=== PATIENT | female | born 2000 | race American Indian/Alaskan Native ===

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

== ENCOUNTER 2020-12-12 06:52 | Observation (INO) | payer SELFPAY ==
[2020-12-12] MEDS ORDERED: NALOXONE 0.4 MG/1 ML INJ IV PRN (11:11)
[2020-12-12] MEDS ORDERED: ONDANSETRON 4 MG/2 ML INJ IV ONE (11:11)
--- NOTE | 2020-12-12 11:19 | Emergency Department Report ---
ED General Adult HPI - General Chief complaint: Altered Mental Status Stated complaint: AMS/DRUG USE Time Seen by Provider: 12/12/20 11:01 Source: family, EMS ( EMS documentation not available at time of chart dictation ), RN notes reviewed, old records reviewed Mode of arrival: Stretcher Limitations: Altered Mental Status - History of Present Illness Initial comments: The patient was evaluated in the emergency department for symptoms described in the history of present illness. He/she was evaluated in the context of the global COVID-19 pandemic, which necessitated consideration that the patient might be at risk for infection with the virus that causes COVID-19. Institutional protocols and algorithms that pertain to the evaluation of patients at risk for COVID-19 are in a state of rapid change based on information released by regulatory bodies including the CDC and federal and state organizations. These policies and algorithms were followed during the patient's care in the emergency department. Please note that these policies, procedures and recommendations changed on a rapid basis. This patient is a 20-year-old female. She is not known to myself previously. She is brought to the hospital by emergency medical services with a complaint of possible overdose. The patient is altered. She is not able to provide any history. Called up patient's significant other, Mr. Alba; [phone]. He provides all of the history of present illness. He states that the patient overdosed on unknown muscle relaxants at 12 or 1 in the morning. He does not know the name of the medication that the patient took. He does not believe that there are any bottles. He denies antecedent trauma. He states he did not witness the overdose. He states the patient informed him that he took the medicine. He also states that the patient indicated she wanted to be left alone. He called 911 this morning because the patient started to have nausea and vomiting. He denies trauma. He also denies fever. He states that she is not . Currently, the patient is not accompanied by friends or family. She is altered, and cannot describe the exacerbating, relieving, aggravating or radiation factors associated with her symptomatology. -: unknown Severity scale (0 -10): 0 - Related Data Home Medications Medication Instructions Recorded Confirmed Last Taken Vitamin 1 tab PO DAILY 05/22/19 05/22/19 05/20/19 20:00 1 Allergies Allergy/AdvReac Type Severity Reaction Status Date / Time amoxicillin Allergy Severe Hives Verified 05/17/19 14:18 ED Review of Systems ROS: Stated complaint: AMS/DRUG USE Other details as noted in HPI Comment: Unobtainable due to pts medical conditions ED Past Medical Hx - Past Medical History Previous Medical History?: Yes Hx Hypertension: No Hx Congestive Heart Failure: No Hx Diabetes: No Hx Deep Vein Thrombosis: No Hx Renal Disease: No Hx Sickle Cell Disease: No Hx Seizures: Yes (02/19/2019) Hx Asthma: No Hx COPD: No Hx HIV: No - Social History Smoking Status: Unknown if ever smoked - Medications Home Medications: Home Medications Medication Instructions Recorded Confirmed Last Taken Type Vitamin 1 tab PO DAILY 05/22/19 05/22/19 05/20/19 20:00 History 1 ED Physical Exam - General Limitations: Altered Mental Status General appearance: lethargic - Head Head exam: Present: atraumatic, normocephalic - Eye Eye exam: Present: normal appearance, other (Pupils are markedly dilated) - ENT ENT exam: Present: normal exam, normal orophraynx, mucous membranes moist, normal external ear exam - Neck Neck exam: Present: normal inspection. Absent: tenderness, meningismus - Respiratory Respiratory exam: Present: decreased breath sounds. Absent: respiratory distress, wheezes, rales, rhonchi, stridor - Cardiovascular Cardiovascular Exam: Present: normal rhythm, bradycardia, normal heart sounds. Absent: tachycardia, irregular rhythm, systolic murmur, diastolic murmur, rubs, gallop - GI/Abdominal GI/Abdominal exam: Present: soft. Absent: distended, tenderness, guarding, rebound, rigid, pulsatile mass - Extremities Exam Extremities exam: Present: normal inspection, other (2+ pulses noted in the bilateral upper and lower extremities. There is no palpable cord. negative Homans sign. Muscular compartments are soft. The pelvis is stable.). Absent: pedal edema, calf tenderness - Back Exam Back exam: Present: normal inspection. Absent: tenderness, CVA tenderness (R), CVA tenderness (L), paraspinal tenderness, vertebral tenderness - Neurological Exam Neurological exam: Present: altered, other (The patient is sleepy. She moves 4 extremities in response to painful stimuli. She occasionally moans.) - Skin Skin exam: Present: warm, dry, intact, normal color. Absent: rash ED Course Vital Signs 12/12/20 12/12/20 07:00 12:20 Temperature 95.4 F L 97.6 F Pulse Rate 57 L 62 Respiratory 14 13 Rate Blood Pressure 128/70 118/59 [Left] O2 Sat by Pulse 100 100 Oximetry - Reevaluation(s) Reevaluation #1: 12/12/20 11:22 Differential diagnosis, including but not limited to: Toxic encephalopathy, metabolic encephalopathy, overdose, environmental hypothermia, electrolyte derangement, thyroid derangement Assessment and plan: 20-year-old female, with reported history of overdose, and nausea and vomiting. It is not known at what time the patient overdosed. Given nausea and vomiting, not a candidate for charcoal. Patient placed on 1013. Nausea medication ordered, as needed Narcan ordered. CT scan of the brain, x- ray of the chest, EKG, and appropriate laboratory studies ordered. Psychiatric consultation requested. Active patient rewarming ordered. We anticipate that this patient will require admission to the hospital for supportive care once her initial diagnostics have resulted. It is unlikely that she will be cleared for psychiatric placement from the emergency room. Reevaluation #2: 12/12/20 11:35 EMS documentation is now reviewed and appreciated. 12/12/20 12:[address] scan of the brain negative for acute findings. Laboratory studies unremarkable. Patient still sleepy. Patient breathing spontaneously protecting her airway. Hypothermia has corrected. Aspirin level and TSH pending. Urinalysis pending. Patient will be admitted to the medical service under the care of Dr. Jesus Manuel Kim Medical decision makin-year-old female with acute toxic metabolic encephalopathy likely secondary to overdose, who is still altered, requires supportive care, cannot be medically cleared for psychiatric hospitalization at this time. ED Medical Decision Making - Lab Data Result diagrams: 12/12/20 11:35 12/12/20 11:35 Vital Signs 12/12/20 07:00 Temperature 95.4 F L Pulse Rate 57 L Respiratory 14 Rate Blood Pressure 128/70 [Left] O2 Sat by Pulse 100 Oximetry - EKG Data -: EKG Interpreted by Ne EKG shows normal: sinus rhythm Rate: bradycardia - EKG Data When compared to previous EKG there are: previous EKG unavailable 12/12/20 11:35 EKG is interpreted at 11: 32 Sinus rhythm, rate 55 bpm, bradycardia, normal axis, normal P wave axis, high left ventricular voltage, QTC 391 ms. QT is 410 ms. Minimal motion artifact. Abnormal EKG. Not a STEMI. - Radiology Data Radiology results: pending, report reviewed, image reviewed Noncontrast CT scan of the brain is negative for acute findings. Critical Care Time: Yes Critical care time in (mins) excluding proc time.: 35 Critical care attestation.: If time is entered above; I have spent that time in minutes in the direct care of this critically ill patient, excluding procedure time. ED Disposition Clinical Impression: Overdose, Hypothermia, Acute encephalopathy Disposition: ADMITTED INPATIENT Is pt being admited?: Yes Does the pt Need Aspirin: No Condition: Serious Referrals: PRIMARY CARE, [Primary Care Provider] - 3-5 Days
--- NOTE | 2020-12-12 12:11 | Cat Scan Report ---
CT HEAD WITHOUT CONTRAST INDICATION / CLINICAL INFORMATION: Medical Clearance Psych. TECHNIQUE: All CT scans at this location are performed using CT dose reduction for ALARA by means of automated e xposure control. COMPARISON: None available. FINDINGS: HEMORRHAGE: No evidence of intracranial hemorrhage or extra-axial fluid collection. EXTRA-AXIAL SPACES: Cortical sulci, sylvian fissures and basilar cisterns have an unremarkable appear ance. VENTRICULAR SYSTEM: The third and lateral ventricles are of normal size and configuration. CEREBRAL PARENCHYMA: No areas of abnormal brain parenchymal attenuation are identified. There is no i ndication of recent infarction. MIDLINE SHIFT OR HERNIATION: There is no mass effect. CEREBELLUM / BRAINSTEM: Brainstem and cerebellum have an unremarkable appearance. MIDLINE STRUCTURES:No abnormalities of the pituitary gland or pineal region are identified. INTRACRANIAL VESSELS:No abnormalities are identified on this noncontrast head CT. ORBITS: visualized portions of the orbits have an unremarkable appearance. SOFT TISSUES of HEAD: No significant abnormality. CALVARIUM: Evaluation of bone windows reveals no abnormalities. PARANASAL SINUSES / MASTOID AIR CELLS: Visualized portions of the paranasal sinuses are free from inf lammatory mucosal disease. Frontal sinuses did not develop in this individual. Mastoid air cells are normally pneumatized. IMPRESSION: 1. Normal head CT without contrast. Signer Name: Yfn Escudero MD Signed: 12/12/2020 12:06 PM Workstation Name: [id number]
[2020-12-12 12:29] LABS: Basophils % (Auto) 0.6 % (0.0-1.8); Eosinophils % (Auto) 0.1 % (0.0-4.3); Hematocrit 42.4 % (30.3-42.9); Hemoglobin 13.9 gm/dl (10.1-14.3); Lymphocytes # (Auto) 1.2 K/mm3 (1.2-5.4); Lymphocytes % (Auto) 24.9 % (13.4-35.0); Mean Corpuscular HGB Conc 33 % (30-34); Mean Corpuscular Volume 89 fl (79-97); Monocytes # (Auto) 0.3 K/mm3 (0.0-0.8); Platelet Count 245 K/mm3 (140-440); Red Blood Count 4.75 M/mm3 (3.65-5.03); Red Cell Distribution Width 13.7 % (13.2-15.2)
[2020-12-12 12:40] LABS: Alanine Aminotransferase 18 units/L (7-56); Albumin 4.4 g/dL (3.9-5); Blood Urea Nitrogen 7 mg/dL (7-17); Calcium 9.8 mg/dL (8.4-10.2); Hemolysis Index 14
[2020-12-12 12:42] LABS: BUN/Creatinine Ratio 23
[2020-12-12] MEDS ORDERED: LACTATED RINGERS 1,000 ML IV ONE (12:55)
--- NOTE | 2020-12-12 13:36 | XRay Report ---
CHEST 1 VIEW 12/12/2020 12:25 PM INDICATION / CLINICAL INFORMATION: Medical Clearance Psych. COMPARISON: None available. FINDINGS: SUPPORT DEVICES: None. HEART / MEDIASTINUM: No significant abnormality. LUNGS / PLEURA: No significant pulmonary or pleural abnormality. No pneumothorax. ADDITIONAL FINDINGS: No significant additional findings. IMPRESSION: 1. No acute findings. Signer Name: Liliane Carrillo MD Signed: 12/12/2020 1:32 PM Workstation Name: [id number]
[2020-12-12 13:59] LABS: Bacteria,Urine 1+ /HPF (Negative); Bilirubin,Urine NEG (Negative); Blood,Urine NEG (Negative); Color,Urine Yellow (Yellow); Mucus,Urine FEW /HPF; Protein,Urine <15 mg/dL mg/dL (Negative); RBC,Urine < 1.0 /HPF (0.0-6.0); Urobilinogen,Urine < 2.0 mg/dL (<2.0); WBC,Urine < 1.0 /HPF (0.0-6.0)
[2020-12-12 14:03] LABS: Amphetamine Screen,Urine Negative; Benzodiazepines Screen,Urine Negative; Cocaine Screen,Urine Negative; Methadone Screen,Urine Negative; Opiate Screen,Urine Negative
[2020-12-12 14:23] LABS: Cannabinoid Screen,Urine Positive
[2020-12-12] MEDS ORDERED: NITROFURANTOIN MONOHYD/M-CRYST 100 MG CAP PO ONE ×2 (15:21→18:00)
--- NOTE | 2020-12-13 00:03 | History and Physical Report ---
History of Present Illness Date of examination: 12/12/20 Date of admission: 12/12/20 16:29 Chief complaint: Took 4 tablets of muscle relaxants from a friend for relief of muscle spasms-no homicidal or suicidal intent History of present illness: 20-year-old -Guyanese female with history of seizures took 4 tablets of muscle relaxants for relief of muscle spasms. The muscles relaxants were given by a friend and she does not name know the name of the muscle relaxant. Was brought to the hospital by emergency medical services with a complaint of possible overdose. In the emergency room patient was slightly lethargic. During my exam patient was alert and oriented and trying to drink fluids. Her only complaint was that whenever she drinks something she is not able to tolerate it and throwing up. Otherwise patient wants to go home. Patient was having nausea and vomiting since she took the pills and lethargic. First few hours. Alert and oriented during my exam. Which is couple hours later around 16 hrs. Because of persistent vomiting patient is being admitted. - Past Medical History Previous Medical History?: Ye Hx Seizures: Yes (02/19/2019) Surgical history None - Social History Smoking Status: Unknown if ever smoked Family history Htn Review of Systems ROS: Constitutional no weight loss or weight gain no fever or chills HEENT no sore throat no post nasal drip no diplopia Neck no neck stiffness no lymph gland enlargement Chest and lungs no shortness of breath cough or wheezing CVS no chest pain no diaphoresis no palpitations GI nausea and vomiting present Genitourinary system no dysuria no flank pain Musculoskeletal system no muscle pains no joint pains 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 no seizures Skin no rash no itching Psychiatric no depression no homicidal or suicidal tendencies Hematologic no lymphedema or bruising Endocrine no polydipsia no polyuria no cold intolerance no heat intolerance Medications and Allergies Allergies Allergy/AdvReac Type Severity Reaction Status Date / Time amoxicillin Allergy Severe Hives Verified 05/17/19 14:18 Home Medications Medication Instructions Recorded Confirmed Last Taken Type No Known Home Medications [No 12/13/20 12/13/20 Unknown History Reported Home Medications] Active Meds: Active Medications Naloxone HCl (Naloxone 0.4 Mg/1 Ml Inj) 0.1 mg IV Q2MIN PRN PRN Reason: Res Rate </= 8 or 02 SAT < 92% Exam - Constitutional Vitals: Temp Pulse Resp BP Pulse Ox 97.6 F 56 L 14 119/75 99 12/12/20 12:20 12/12/20 18:01 12/12/20 18:01 12/12/20 18:01 12/12/20 18:01 General appearance: Present: no acute distress, well-nourished - EENT Eyes: Present: PERRL ENT: hearing intact, clear oral mucosa - Neck Neck: Present: supple, normal ROM - Respiratory Respiratory effort: normal Respiratory: bilateral: CTA - Cardiovascular Heart rate: 88 Rhythm: regular Heart Sounds: Present: S1 & S2. Absent: rub, click - Extremities Extremities: pulses symmetrical, No edema Peripheral Pulses: within normal limits - Abdominal General gastrointestinal: Present: soft, non-tender, non-distended, normal bowel sounds Female genitourinary: Present: normal - Integumentary Integumentary: Present: clear, warm, dry - Musculoskeletal Musculoskeletal: gait normal, strength equal bilaterally - Psychiatric Psychiatric: appropriate mood/affect, intact judgment & insight - Neurologic Neurologic: CNII-XII intact, moves all extremities - Allied Health Allied health notes reviewed: nursing, case management Results - Labs CBC & Chem 7: 12/12/20 11:35 12/12/20 11:35 Labs: Laboratory Last Values WBC 4.7 K/mm3 (4.5-11.0) 12/12/20 11:35 RBC 4.75 M/mm3 (3.65-5.03) 12/12/20 11:35 Hgb 13.9 gm/dl (10.1-14.3) 12/12/20 11:35 Hct 42.4 % (30.3-42.9) 12/12/20 11:35 MCV 89 fl (79-97) 12/12/20 11:35 MCH 29 pg (28-32) 12/12/20 11:35 MCHC 33 % (30-34) 12/12/20 11:35 RDW 13.7 % (13.2-15.2) 12/12/20 11:35 Plt Count 245 K/mm3 (140-440) 12/12/20 11:35 Lymph % (Auto) 24.9 % (13.4-35.0) 12/12/20 11:35 [place]upe % (Auto) 6.0 % (0.0-7.3) 12/12/20 11:35 Eos % (Auto) 0.1 % (0.0-4.3) 12/12/20 11:35 Baso % (Auto) 0.6 % (0.0-1.8) 12/12/20 11:35 Lymph # (Auto) 1.2 K/mm3 (1.2-5.4) 12/12/20 11:35 [place]upe # (Auto) 0.3 K/mm3 (0.0-0.8) 12/12/20 11:35 Eos # (Auto) 0.0 K/mm3 (0.0-0.4) 12/12/20 11:35 Baso # (Auto) 0.0 K/mm3 (0.0-0.1) 12/12/20 11:35 Seg Neutrophils % 68.4 % (40.0-70.0) 12/12/20 11:35 Seg Neutrophils # 3.2 K/mm3 (1.8-7.7) 12/12/20 11:35 Sodium 141 mmol/L (137-145) 12/12/20 11:35 Potassium 4.3 mmol/L (3.6-5.0) 12/12/20 11:35 Chloride 105.8 mmol/L (98-107) 12/12/20 11:35 Carbon Dioxide 26 mmol/L (22-30) 12/12/20 11:35 Anion Gap 14 mmol/L 12/12/20 11:35 BUN 7 mg/dL (7-17) 12/12/20 11:35 Creatinine 0.3 mg/dL (0.6-1.2) L 12/12/20 11:35 Estimated GFR > 60 ml/min 12/12/20 11:35 BUN/Creatinine Ratio 23 % 12/12/20 11:35 Glucose 107 mg/dL (65-100) H 12/12/20 11:35 Calcium 9.8 mg/dL (8.4-10.2) 12/12/20 11:35 Magnesium 2.30 mg/dL (1.7-2.3) 12/12/20 11:35 Total Bilirubin 0.30 mg/dL (0.1-1.2) 12/12/20 11:35 AST 15 units/L (5-40) 12/12/20 11:35 ALT 18 units/L (7-56) 12/12/20 11:35 Alkaline Phosphatase 77 units/L (35-129) 12/12/20 11:35 Total Creatine Kinase 93 units/L (30-135) 12/12/20 11:35 Total Protein 7.9 g/dL (6.3-8.2) 12/12/20 11:35 Albumin 4.4 g/dL (3.9-5) 12/12/20 11:35 Albumin/Globulin Ratio 1.3 % 12/12/20 11:35 TSH 0.845 mlU/mL (0.270-4.200) 12/12/20 11:35 HCG, Qual Negative (Negative) 12/12/20 11:35 Urine Color Yellow (Yellow) 12/12/20 Unknown Urine Turbidity Clear (Clear) 12/12/20 Unknown Urine pH 6.0 (5.0-7.0) 12/12/20 Unknown Ur Specific [place] 1.006 (1.003-1.030) 12/12/20 Unknown Urine Protein <15 mg/dl mg/dL (Negative) 12/12/20 Unknown Urine Glucose (UA) Neg mg/dL (Negative) 12/12/20 Unknown Urine Ketones Tr mg/dL (Negative) 12/12/20 Unknown Urine Blood Neg (Negative) 12/12/20 Unknown Urine Nitrite Pos (Negative) 12/12/20 Unknown Urine Bilirubin Neg (Negative) 12/12/20 Unknown Urine Urobilinogen < 2.0 mg/dL (<2.0) 12/12/20 Unknown Ur Leukocyte Esterase Neg (Negative) 12/12/20 Unknown Urine WBC (Auto) < 1.0 /HPF (0.0-6.0) 12/12/20 Unknown Urine RBC (Auto) < 1.0 /HPF (0.0-6.0) 12/12/20 Unknown U Epithel Cells (Auto) 1.0 /HPF (0-13.0) 12/12/20 Unknown Urine Bacteria (Auto) 1+ /HPF (Negative) 12/12/20 Unknown Urine Mucus Few /HPF 12/12/20 Unknown Salicylates < 0.3 mg/dL (2.8-20.0) L 12/12/20 11:35 Urine Opiates Screen Negative 12/12/20 Unknown Urine Methadone Screen Negative 12/12/20 Unknown Acetaminophen 5.0 ug/mL (10.0-30.0) L 12/12/20 11:35 Ur Barbiturates Screen Negative 12/12/20 Unknown Ur Phencyclidine Scrn Negative 12/12/20 Unknown Ur Amphetamines Screen Negative 12/12/20 Unknown U Benzodiazepines Scrn Negative 12/12/20 Unknown Urine Cocaine Screen Negative 12/12/20 Unknown U Marijuana (THC) Screen Positive 12/12/20 Unknown Drugs of Abuse Note Disclamer 12/12/20 Unknown Plasma/Serum Alcohol < 0.01 % (0-0.07) 12/12/20 11:35 Short CBC 12/12/20 Range/Units 11:35 WBC 4.7 (4.5-11.0) K/mm3 Hgb 13.9 (10.1-14.3) gm/dl Hct 42.4 (30.3-42.9) % Plt Count 245 (140-440) K/mm3 BMP 12/12/20 11:35 Sodium 141 Potassium 4.3 Chloride 105.8 Carbon Dioxide 26 BUN 7 Creatinine 0.3 L Glucose 107 H Calcium 9.8 Cardiac Enzymes 12/12/20 Range/Units 11:35 Total Creatine Kinase 93 (30-135) units/L Liver Function 12/12/20 Range/Units 11:35 Total Bilirubin 0.30 (0.1-1.2) mg/dL AST 15 (5-40) units/L ALT 18 (7-56) units/L Alkaline Phosphatase 77 (35-129) units/L Albumin 4.4 (3.9-5) g/dL Urine 12/12/20 Range/Units Unknown Urine Color Yellow (Yellow) Urine pH 6.0 (5.0-7.0) Ur Specific [place] 1.006 (1.003-1.030) Urine Protein <15 mg/dl (Negative) mg/dL Urine Glucose (UA) Neg (Negative) mg/dL Assessment and Plan Advance Directives: Yes (Full code) VTE prophylaxis?: Chemical Plan of care discussed with patient/family: Yes - Patient Problems (1) Overdose Current Visit: Yes Status: Acute Qualifiers: Encounter type: initial encounter Injury intent: accidental or unintentional Qualified Code(s): T50.901A - Poisoning by unspecified drugs, medicaments and biological substances, accidental (unintentional), initial encounter Plan to address problem: Patient is not homicidal or suicidal. Patient took 4 muscle relaxants the names of which she does not know for relief of muscle spasms As nausea and vomiting after taking the muscle relaxants Was a bit lethargic but became to normal level of consciousness after couple of hours in the emergency room IV fluids for now IV Protonix for now IV Zofran for now (2) Acute gastritis Current Visit: Yes Status: Acute Plan to address problem: IV Protonix and IV Zofran and IV Reglan for now (3) Marijuana use Current Visit: Yes Status: Chronic Plan to address problem: Patient counseled Marijuana may be causing the vomiting (4) Discharge planning issues Current Visit: Yes Status: Acute Plan to address problem: Patient may be discharged tomorrow if vomiting subsides No mental health consult Patient is not homicidal or suicidal (5) DVT prophylaxis Current Visit: Yes Status: Acute Plan to address problem: On SCDs and GI prophylaxis
[2020-12-13] MEDS ORDERED: IBUPROFEN 600 MG TAB PO PRN (00:05)
[2020-12-13] MEDS ORDERED: HYDROmorphone 1 MG/1 ML INJ IV PRN ×2 (00:05)
[2020-12-13] MEDS ORDERED: ACETAMINOPHEN 325 MG TAB PO PRN (00:05)
[2020-12-13] MEDS ORDERED: ONDANSETRON 4 MG/2 ML INJ IV PRN (00:05)
[2020-12-13] MEDS ORDERED: D5W/0.9% NACL 1,000 ML IV SCH (01:00)
[2020-12-13] MEDS ORDERED: FAMOTIDINE 20 MG/2 ML INJ IV SCH (01:00)
[2020-12-13] MEDS ORDERED: SODIUM CHLORIDE 0.9% 1000 ML 1,000 ML IV SCH (07:15)
[2020-12-13] MEDS: PANTOPRAZOLE 40 MG INJ IV SCH ×2 (08:00→11:31)
[2020-12-13] MEDS ORDERED: HEPARIN 5,000 UNIT/1 ML VIAL SUB-Q SCH (10:00)
--- NOTE | 2020-12-13 10:10 | Consultation ---
History of Present Illness - Reason for Consult Consult date: 12/13/20 Reason for consult: OD - Chief Complaint Chief complaint: Took 4 tablets of muscle relaxants from a friend for relief of muscle spasms-no homicidal or suicidal intent - History of Present Psychiatric Illness Per ER Note: This patient is a 20-year-old female. She is not known to myself previously. She is brought to the hospital by emergency medical services with a complaint of possible overdose. The patient is altered. She is not able to provide any history. Called up patient's significant other, Mr. Alba; [phone]. He provides all of the history of present illness. He states that the patient overdosed on unknown muscle relaxants at 12 or 1 in the morning. He does not know the name of the medication that the patient took. He does not believe that there are any bottles. He denies antecedent trauma. He states he did not witness the overdose. He states the patient informed him that he took the medicine. He also states that the patient indicated she wanted to be left alone. He called 911 this morning because the patient started to have nausea and vomiting. He denies trauma. He also denies fever. He states that she is not . During my evaluation of 20y/o Huseyin Gustafson, she is a pleasant, and polite AA female. She is calm, cooperative, and a.o x 3. She is smiling most of the visit. The patient says she has a lot of back pain and was given medication by her friend. She says "I didn't really ask her what it was. She just told me she had something to help me with the pain." The patient says, "I took two of them, the pain didn't go away so I took two more." She says "my friend feels so bad for giving me that now." When asking the patient did she take the pills in an attempt to harm herself, she says "I promise I was not trying to kill myself. It was only 4 pills. That was not what I was trying to do." She then laughs. The patient says "apparently my boyfriend couldn't wake me up." She says "I think I must have fallen out of the bed too because I have a knot on my head." Huseyin says she has a daughter. 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 The patient did admit that she "cuts sometimes." She says "I know if people see this they automatically think you want to hurt yourself." She says "I did this for the first time in long time, just to relieve stress." She denies ever seeing a psychiatric or being on any psych medications. Although she expressed feeling depressed at times. She laughs and states "depressed now, not suicidal." I discussed with the patient the benefits of therapy and possibly an antidepressant while here. She says "that would work. d/c 1013I definitely will look into that." She denies hallucinations of any kind. She denies any illicit drug use out side of THC. PAST PSYCHIATRIC HISTORY: Diagnoses: Denies Suicide attempts or Self-harm behavior: cutting Prior psychiatric hospitalizations: Denies Substance Abuse history: Denies Previous psychiatric medications tried: Denies Outpatient treatment: Denies PAST MEDICAL HISTORY: None reported or document Family Psychiatric History: None reported or documented SOCIAL HISTORY Marital Status: Single Living Arrangements: with child and child's father Employment Status: Employed Access to guns/weapons: denies Education: high school History of Abuse: denies Legal History: denies REVIEW OF SYSTEMS Constitutional: Negative for weight loss ENT: Negative for stridor Respiratory: Negative for cough or hemoptysis All other systems reviewed and are negative MENTAL STATUS EXAMINATION General Appearance and Behavior: Age appropriate, good hygiene, wearing a ppropriate clothes, calm and cooperative polite with questioning. Cooperation: engaged Psychomotor Behavior: Psychomotor normal Mood: fine Affect and affective range: congruent with stated mood, smiling, euthymic Thought Process: goal directed Thought Content: None Speech: Normal volume, Regular rate and rhythm, Suicidal Ideation: Denies Homicidal Ideation: Denies Hallucinations: Denies Delusions: None elicited Impulse Control: Questionable Insight and Judgment: Limited Memory: Limited Attention: attentive Orientation: a/o x 4 Assessment (1)Accidental Overdose Treatment Plan d/c 1013 Lexapro 5mg po daily #30, no refills Sitter: Per primary Medical: primary Disposition: Do not recommend acute psychiatric inpatient treatment The patient to follow up with outpatient psych in 7 to 14 days upon discharge from hospital The ripening room hand to give the patient resources to establish outpatient psychiatry for med management and CBT Will sign off. Thanks. Case staffed with Dr. Romano Medications and Allergies Allergies Allergy/AdvReac Type Severity Reaction Status Date / Time amoxicillin Allergy Severe Hives Verified 05/17/19 14:18 Home Medications Medication Instructions Recorded Confirmed Last Taken Type Escitalopram Oxalate [Lexapro] 5 mg PO QDAY #30 tablet 12/13/20 Unknown Rx Active Meds: Active Medications Acetaminophen (Acetaminophen 325 Mg Tab) 650 mg PO Q4H PRN PRN Reason: Pain MILD(1-3)/Fever >100.5/BOBO Heparin Sodium (Porcine) (Heparin 5,000 Unit/1 Ml Vial) 5,000 unit SUB-Q Q12HR LOKESH Hydromorphone HCl (Hydromorphone 1 Mg/1 Ml Inj) 0.25 mg IV Q3H PRN PRN Reason: Pain, Moderate (4-6) Hydromorphone HCl (Hydromorphone 1 Mg/1 Ml Inj) 0.5 mg IV Q3H PRN PRN Reason: Pain , Severe (7-10) Dextrose/Sodium Chloride (D5ns) 1,000 mls @ 150 mls/hr IV DIRECT LOKESH Sodium Chloride (Nacl 0.9% 1000 Ml) 1,000 mls @ 150 mls/hr IV DIRECT LOKESH Ibuprofen (Ibuprofen 600 Mg Tab) 600 mg PO Q6H PRN PRN Reason: Pain, Mild (1-3) Naloxone HCl (Naloxone 0.4 Mg/1 Ml Inj) 0.1 mg IV Q2MIN PRN PRN Reason: Res Rate </= 8 or 02 SAT < 92% Ondansetron HCl (Ondansetron 4 Mg/2 Ml Inj) 4 mg IV Q8H PRN PRN Reason: Nausea And Vomiting Last Admin: 12/13/20 01:38 Dose: 4 mg Documented by: Pantoprazole Sodium (Pantoprazole 40 Mg Inj) 40 mg IV BID LOKESH Sodium Chloride (Sodium Chloride 0.9% 10 Ml Flush Syringe) 10 ml IV BID LOKESH Sodium Chloride (Sodium Chloride 0.9% 10 Ml Flush Syringe) 10 ml IV PRN PRN PRN Reason: LINE FLUSH Mental Status Exam - Vital signs Last Vital Signs Temp 97.6 F 12/12/20 12:20 Pulse 56 L 12/13/20 08:01 Resp 18 12/13/20 08:01 BP 102/52 12/13/20 08:01 Pulse Ox 100 12/13/20 09:06 Results Result Diagrams: 12/12/20 11:35 12/12/20 11:35 Abnormal lab results 12/12/20 12/12/20 12/12/20 Range/Units 11:35 11:35 11:35 Creatinine 0.3 L (0.6-1.2) mg/dL Glucose 107 H (65-100) mg/dL Salicylates < 0.3 L (2.8-20.0) mg/dL Acetaminophen 5.0 L (10.0-30.0) ug/mL All other labs normal.
[2020-12-13] MEDS ORDERED: ESCITALOPRAM 10 MG TAB PO SCH (11:00)
[2020-12-13 11:57] VITALS: BP 123/74
--- NOTE | 2020-12-13 13:53 | Discharge Summary ---
Providers - Providers Date of Admission: 12/12/20 16:29 Date of discharge: 12/13/20 Attending physician: JOHNNY FRANKLIN 12/12/20 11:11 Consult to Mental Health [CONS] Urgent Reason For Exam: od Primary care physician: EMAIL MARKETER Hospitalization Reason for admission: Toxic metabolic encephalopathy/nausea vomiting after ingestion of pills Condition: Stable Pertinent studies: CT head without contrast no acute abnormalities Chest x-ray no acute abnormalities Hospital course: --Toxic metabolic encephalopathy; Current Visit: Yes Status: Acute Due to ingestion of unknown medication/? Muscle relaxer Now resolved --Accidental overdose Patient is not homicidal or suicidal. Patient took 4 muscle relaxants the names of which she does not know for relief of muscle spasms As nausea and vomiting after taking the muscle relaxants Was a bit lethargic but became to normal level of consciousness after couple of hours in the emergency room Now alert awake oriented x3 -- Acute gastritis Current Visit: Yes Status: Acute Discharged with Protonix --Marijuana use Current Visit: Yes Status: Chronic Advised to quit recreational drug use Disposition: 01 HOME / SELF CARE / HOMELESS Final Discharge Diagnosis (Prints w/discharge instructions): Toxic metabolic encephalopathy/resolved. Accidental overdose with muscle relaxer/no symptoms. Acute gastritis. Improved. History of recreational drug use marijuana/advised to quit Time spent for discharge: 35 minutes Core Measure Documentation - Palliative Care Palliative Care/ Comfort Measures: Not Applicable - Core Measures Any of the following diagnoses?: none Exam - Constitutional Vitals: Temp Pulse Resp BP Pulse Ox 97.6 F 65 16 123/74 55 L 12/12/20 12:20 12/13/20 11:01 12/13/20 11:01 12/13/20 11:01 12/13/20 11:01 General appearance: Present: no acute distress, well-nourished - EENT Eyes: Present: PERRL, EOM intact - Neck Neck: Present: supple, normal ROM - Respiratory Respiratory effort: normal Respiratory: bilateral: diminished, negative: rales, rhonchi, wheezing - Cardiovascular Rhythm: regular Heart Sounds: Present: S1 & S2 - Extremities Extremities: no ischemia, No edema - Abdominal General gastrointestinal: Present: soft, non-tender, non-distended, normal bowel sounds - Integumentary Integumentary: Present: clear, warm - Musculoskeletal Musculoskeletal: strength equal bilaterally, generalized weakness - Psychiatric Psychiatric: appropriate mood/affect, cooperative - Neurologic Neurologic: CNII-XII intact, moves all extremities Plan Activity: no restrictions Diet: regular Additional Instructions: Plenty oral fluids, diet as tolerated. Advised to quit recreational drug use marijuana. If you have worsening symptoms contact MD or go to the nearest emergency room Care Plan Goals: Professional and Agency Contacts To help Resolve Crises(07/11) [place] Crisis Line: Suicide Prevention Line: Crisis Text Line: Text START to [phone] Emergency: 911 Outpatient COMMUNITY Behavioral Health Resources: GURINDER: [facility] [address] [place], [place] [address] BROOKS: [address] [address] [employer]: [facility] - [address] [place] [address] Monday thru Monday - 8am - 5pm [facility] Address: [address] [place] [address] KRISTEL: [facility] Address: [address] [place] [address] Monday thru Monday- 7am-2pm [facility] Address: [address] [place] [address] Monday thru Monday: 8:30AM-5PM Follow up with: PRIMARY CARE, [Primary Care Provider] - 3-5 Days Prescriptions: Escitalopram Oxalate [Lexapro] 5 mg PO QDAY #30 tablet Pantoprazole [Protonix] 40 mg PO QDAY #14 tablet Ondansetron [Zofran Odt] 4 mg PO Q8HR #15 tab.[email or web address]
--- NOTE | 2020-12-15 08:49 | Electrocardiograph Report ---
[facility] Test Date: 2020-12-12 Test Time: 11:32:47 Pat Name: JANINE WELLS Department: Room: [place] [address] Gender: F Marketing Trainee: IVONNE : 2000 Requested By: AUGUSTA HOLGUIN Order Number: [id number] Reading MD: Kali Malone Measurements Intervals [place] Rate: 55 P: 54 [place]: 146 QRS: 57 QRSD: 77 T: 42 QT: 410 QTc: 391 Interpretive Statements Sinus bradycardia ST elevation early replorization No previous ECG available for comparison Electronically Signed On 12-15-2020 8:49:11 EDT by Kali Malone
== END 2020-12-13 15:30 | disposition home or self-care (01) ==
LOC: ED 06:52 → 4A 16:29
PROVIDERS: ADMIT Internal Medicine; ATTEND Internal Medicine
DX: T50.901A Poisoning by unspecified drugs, medicaments and biological substances, accidental (unintentional), initial encounter (principal); Z20.822 Contact with and (suspected) exposure to COVID-19; K29.00 Acute gastritis without bleeding; F12.90 Cannabis use, unspecified, uncomplicated; T68.XXXA Hypothermia, initial encounter; G93.40 Encephalopathy, unspecified; Z86.73 Personal history of transient ischemic attack (TIA), and cerebral infarction without residual deficits; Z79.899 Other long term (current) drug therapy; Z98.890 Other specified postprocedural states
CPT/HCPCS: 36415; 70450; 71045; 80053; 80307; 81001; 82550; 83735; 84443; 84703; 85025; 93005; 96374; 96375; 96376; 99291; C9113; G0378; J2405; J7120; U0003; 80320; G0480